=== PATIENT | male | born 1990 | race Native Hawaiian/Other Pacific Islander ===

== ENCOUNTER 2017-10-27 15:50 | Emergency (ER) | payer OTHER ==
[~2017-10-27] VITALS: Ht 185.4 cm; Wt 113.4 kg
== END 2017-10-27 16:20 | disposition home or self-care (01) ==
LOC: ED 15:50
DX: R68.84 Jaw pain (principal); K02.9 Dental caries, unspecified; L03.211 Cellulitis of face
CPT/HCPCS: 99281